=== PATIENT | male | born 1965 | race African-American/Black ===

== ENCOUNTER 2025-03-16 05:26 | Emergency (ER) | payer MEDICARE ==
[~2025-03-16] VITALS: Ht 175.3 cm; Wt 118.0 kg
[2025-03-16 06:00] VITALS: PULSE 80; RESP 16; O2SAT 99
[2025-03-16] MEDS ORDERED: METHYLPREDNISOLONE 40MG/ML INJ IV ONE (06:00)
[2025-03-16 06:20] VITALS: PULSE 84; RESP 16; O2SAT 100
[2025-03-16] MEDS: IPRATROPIUM BROMIDE (0.02%) 0.5MG/2.5ML NEB HHN SCH (06:24)
[2025-03-16] MEDS: ALBUTEROL (0.083%) 2.5MG/3ML NEB HHN SCH (06:25)
[2025-03-16] MEDS: MAGNESIUM 2 G PREMIX 50 ML IV ONE (06:29)
[2025-03-16] MEDS: METHYLPREDNISOLONE SOD SUCC 125MG/2ML (ACT-O-VIAL) IV NR (06:29)
[2025-03-16 06:35] VITALS: PULSE 83; RESP 24; O2SAT 98
[2025-03-16 06:39] LABS: BASOPHILS % 0.5 % (0.0-2.0); EOSINOPHILS % 0.6 % (0.0-5.0); HEMATOCRIT. 35.9 % (42.0-52.0); HEMOGLOBIN. 11.9 g/dL (14.0-18.0); LYMPHOCYTES % 18.0 % (20.0-50.0); MONOCYTES % 6.3 % (2.0-8.0); NEUTROPHILS % 74.6 % (40.0-76.0); RED BLOOD CELL COUNT 3.71 mill/uL (4.7-6.1); RED CELL DISTRIBUTION WIDTH 13.2 % (11.6-14.6)
[2025-03-16 06:51] LABS: CREATININE 1.1 mg/dL (0.6-1.3); UREA NITROGEN BLOOD 16 mg/dL (9-23)
[2025-03-16 06:52] LABS: TROPONIN I HIGH SENSITIVITY 20 ng/L (3.0-53)
[2025-03-16 06:53] LABS: ASPARTATE AMINOTRANSFERASE 28 IU/L (<34); BILIRUBIN DIRECT 0.1 mg/dL (<=3.0); BILIRUBIN TOTAL 0.3 mg/dL (0.1-1.0); PROTEIN TOTAL 6.6 g/dL (6.0-8.3)
[2025-03-16 09:05] VITALS: PULSE 79; RESP 16; O2SAT 98
[2025-03-16] MEDS: POTASSIUM CHLORIDE 20MEQ/PACKET PO ONE (09:05)
[2025-03-16] MEDS: ALBUTEROL (0.083%) 2.5MG/3ML NEB HHN ONE (09:05)
[2025-03-16 09:41] LABS: ETHANOL BLOOD < 10 mg/dL (<10)
[2025-03-16 11:00] LABS: *AMPHETAMINES SCREEN URINE PRESUMPTIVE POSITIVE (NEGATIVE); *BARBITURATES SCREEN URINE NEGATIVE (NEGATIVE); *BENZODIAZEPINES SCREEN URINE NEGATIVE (NEGATIVE); *COCAINE SCREEN URINE NEGATIVE (NEGATIVE); METHADONE URINE SCREEN NEGATIVE (NEGATIVE); OPIATES URINE SCREEN NEGATIVE (NEGATIVE)
[2025-03-16 11:01] LABS: CANNABINOID URINE SCREEN NEGATIVE (NEGATIVE); ECSTASY MDMA SCREEN URINE NEGATIVE (NEGATIVE); PHENCYCLIDINE URINE SCREEN PRESUMTIVE POSITIVE (NEGATIVE)
[2025-03-16] MEDS: FENTANYL CITRATE/PF 50MCG/ML 2ML VIAL IV ONE (12:00)
[2025-03-16 14:25] LABS: CLARITY URINE CLEAR (CLEAR); COLOR URINE YELLOW (YELLOW)
[2025-03-16 14:26] LABS: GLUCOSE URINE TRACE (NEGATIVE); KETONES URINE NEGATIVE (NEGATIVE); LEUKOCYTE ESTERASE URINE NEGATIVE (NEGATIVE); NITRITE URINE NEGATIVE (NEGATIVE); OCCULT BLOOD URINE NEGATIVE (NEGATIVE); PH URINE 6.5 (4.5-8.0); PROTEIN URINE NEGATIVE (NEGATIVE); SPECIFIC GRAVITY URINE 1.018 (1.005-1.030); UROBILINOGEN URINE 2.0 E.U./dL (0.2-1.0)
[2025-03-16 14:42] LABS: SQUAMOUS EPITHELIAL CELL URINE FEW /lpf (RARE/1+)
[2025-03-16 14:43] LABS: BACTERIA URINE NONE SEEN; MUCUS URINE TRACE /lpf (NONE/TRACE); RBC URINE NONE SEEN /hpf (0-2); WBC URINE NONE SEEN /hpf (0-2)
[2025-03-16 17:42] VITALS: BP 166/89; PULSE 79; RESP 18; TEMP 36.8; O2SAT 98
== END 2025-03-16 18:04 ==
LOC: ER 05:26
DX: T18.5XXA Foreign body in anus and rectum, initial encounter (principal); R45.851 Suicidal ideations; J44.1 Chronic obstructive pulmonary disease with (acute) exacerbation; E87.6 Hypokalemia; I10 Essential (primary) hypertension; Z79.899 Other long term (current) drug therapy; Z20.822 Contact with and (suspected) exposure to COVID-19; W44.9XXA Unspecified foreign body entering into or through a natural orifice, initial encounter; Y93.89 Activity, other specified; Y92.89 Other specified places as the place of occurrence of the external cause; Y99.8 Other external cause status
CPT/HCPCS: 80076; 80305; 80048; 81003; 80307; 80329; 80320; 83880; 85025; 84484; 36415; 71045; 74018; 94640; 96365; 96366; 96375; 99285; 87426; J3010; J3475; J2919; 94070; 94664; G0480